=== PATIENT | female | born 1990 | race Two or more races ===

== ENCOUNTER 2024-10-02 19:27 | Emergency (ER) | payer SELFPAY ==
[2024-10-02 19:28] VITALS: BMI 23.4
--- NOTE | 2024-10-02 20:00 | PC.NURSE ---
no answer in lobby when called for vital signs
--- NOTE | 2024-10-02 20:40 | PC.NURSE ---
no answer in lobby when called for vital signs
--- NOTE | 2024-10-02 21:34 | PD.EDADDENDU ---
Emergency Room Addendum Addendum Narrative: I was told the patient eloped. Sánchez Bang MD
--- NOTE | 2024-10-02 21:43 | PC.NURSE ---
NO ANSWER IN LOBBY WHEN CALLED FOR VITAL SIGNS
== END 2024-10-02 21:43 | disposition left against medical advice (07) ==
LOC: SERX 21:11
PROVIDERS: Emergency Provider Emergency Medicine
DX: Z53.21 Procedure and treatment not carried out due to patient leaving prior to being seen by health care provider (principal)